=== PATIENT | female | born 1950 | race Caucasian/White ===

== ENCOUNTER 2017-09-28 14:50 | Outpatient (CLI) | payer MEDICARE | END 2017-09-28 14:51 | disposition home or self-care (01) | LOC: BICMAMMO 14:50 | PROVIDERS: ATTEND Internal Medicine | DX: Z12.31 Encounter for screening mammogram for malignant neoplasm of breast (principal); Z13.820 Encounter for screening for osteoporosis; Z78.0 Asymptomatic menopausal state | CPT/HCPCS: 77063; 77067; 77080 ==

== ENCOUNTER 2019-07-24 09:31 | Outpatient (CLI) | payer MEDICARE ==
--- NOTE | 2019-07-24 10:30 | CT ---
LOW DOSE CT SCAN OF CHEST WITHOUT IV CONTRAST FOR LUNG CANCER SCREENING: Date: 07/24/19 HISTORY: Nicotine dependence. 46 year less than 1 pack/day smoking history. Patient quit smoking 06/19/19. COMPARISON: 06/20/18. FINDINGS: No pulmonary nodules are seen. No pneumothoraces or focal areas of consolidation are identified. No p leural or pericardial effusions are noted. There is no evidence of aneurysmal dilatation of the thora cic aorta. Degenerative changes are present in the spine. IMPRESSION: Lung-RADS Category 1 - Negative. RECOMMENDATION: Continue routine annual LDCT lung screening in 12 months. POS: TANK
== END 2019-07-24 09:32 | disposition home or self-care (01) ==
LOC: CT 09:31
PROVIDERS: ATTEND Internal Medicine
DX: F17.210 Nicotine dependence, cigarettes, uncomplicated (principal)
CPT/HCPCS: G0297

== ENCOUNTER 2020-03-05 10:07 | Observation (INO) | payer MEDICARE, OTHER ==
[2020-03-05 11:15] LABS: #Eosinphils 0.1 thou/uL (0.0-0.7); #Lymphocytes 1.7 thou/uL (1.20-3.40); #Monocytes 0.5 thou/uL (0.11-0.59); #Neutrophils 3.7 thou/uL (1.40-6.50); %Basophils 0.5 % (0.0-1.0); %Eosinophils 0.9 % (0.0-10.0); %Lymphocytes 28.3 % (21.0-51.0); %Monocytes 7.5 % (0.0-10.0); %Neutrophils 62.8 % (42.0-75.0); Hemoglobin 14.1 g/dL (12.0-16.0); Mean Corpuscular HGB CONC 32.9 g/dL (32.0-36.0); Mean Corpuscular Hemoglobin 30.5 pg (27.0-31.0); Mean Corpuscular Volume 92.6 fL (78.0-98.0); Mean Platelet Volume 9.7 fL (7.4-10.4); Platelet Count 195 thou/uL (130-400); Red Blood Cell (RBC) Count 4.64 mill/uL (4.20-5.40); White Blood Cell (WBC) Count 5.9 thou/uL (4.8-10.8)
--- NOTE | 2020-03-05 11:19 | RAD ---
EXAM: Single view of the chest HISTORY: Altered mental status COMPARISON: None FINDINGS: Single view of the chest shows a normal sized cardiomediastinal silhouette. There is no meghan dence of consolidation, mass, or pleural effusion. The bones are unremarkable IMPRESSION: No evidence of acute cardiopulmonary disease
[2020-03-05 11:26] LABS: Bilirubin Negative (Negative); Blood, Urine Negative (Negative); Glucose, Urine (Dipstick) Negative (Negative); Ketone, Urine Negative (Negative); Leukocyte Negative (Negative); Nitrite Negative (Negative); Protein, Urine (Dipstick) Negative (Neg-Trace); Urobilinogen 0.2 mg/dL (Less than 2)
[2020-03-05 11:27] LABS: Clarity Clear (Clear); Specific Gravity, Urine 1.004 (1.002-1.036)
--- NOTE | 2020-03-05 11:51 | CT ---
EXAM: CT brain without contrast HISTORY: Dizziness and altered mental status COMPARISON: None TECHNIQUE: Multiple contiguous axial images were obtained and a CT of the brain without contrast. FINDINGS: The brain is normal in morphology and attenuation without focal lesions or confluent areas of infarction. There is no evidence of hydrocephalus, intracranial hemorrhage, or extra-axial fluid collection. The calvarium and overlying soft tissues are unremarkable. The visualized paranasal sinuses and masto id air cells are well aerated. IMPRESSION: No evidence of acute intracranial abnormality
[2020-03-05 11:52] LABS: ALT (SGPT) 17 U/L (8-55); AST (SGOT) 15 U/L (5-34); Albumin 4.2 g/dL (3.4-4.8); Alkaline Phosphatase 87 U/L (40-110); Anion Gap 14 mmol/L (10-20); BUN (Urea Nitrogen) 18 mg/dL (9.8-20.1); Bilirubin, Total 0.6 mg/dL (0.2-1.2); CK (CPK) 61 U/L (29-168); Calc. Creatinine Clearance 0 mL/min (70-130); Calcium 9.1 mg/dL (7.8-10.44); Carbon Dioxide 24 mmol/L (23-31); Chloride 106 mmol/L (98-107); Estimated GFR-MDRD 69; Globulin 2.9 g/dL (2.4-3.5); Glucose 89 mg/dL (80-115); Lipase 20 U/L (8-78); Potassium 3.8 mmol/L (3.5-5.1); Protein, Total 7.1 g/dL (6.0-8.3); Sodium 140 mmol/L (136-145)
[2020-03-05] MEDS ORDERED: Iopamidol-370 76% 500 ML 1 ML ONE (12:30)
[2020-03-05] MEDS ORDERED: Meclizine HCl 25 MG TAB ONE (12:53)
[2020-03-05] MEDS ORDERED: Aspirin Chewable 81 MG TAB ONE (12:53)
--- NOTE | 2020-03-05 13:41 | PDOC.FPRHP ---
- History of Present Illness Chief Complaint: dizziness, numbness in hands and feet History of Present Illness: Ms. Mehta is a 70 yo F with a history of HLD, HTN, asthma and anxiety who presents to the ED complaining of dizziness and bilateral numbness in her hands and feet that began while she was sitting at her desk this afternoon. Patient explains she had a sudden sensation of fogginess, lightheadedness, generalized weakness and tingling throughout her arms and legs. She also experienced a sudden loss of taste. These sensations stayed constant until she received meclazine in the ED. Patient experienced similar, though not as severe symptoms , last week at home. At that time she rested and the symptoms subsided. Patient complains of rhinorrhea for the past week, a loss of taste that began today and a slight cough. She explains she stopped smoking in May and has a lingering cough. Of note, 3 of the patient's coworkers are COVID positive. Patient also reports that she has been hitting her right arm on door frames and tables as she walks by them. 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 ED Course: Patient received aspirin, meclizine, and 500mL of NS. Patient's D-dimer was elevated at 2.26, urine was negative, and all other labs were within normal limits. EKG showed sinus jonathon, sinus arrythmia with a pulse of 57, no STEMI and her trop was <0.01. Patient's CXR was normal, CT was negative, CTA was negative. - Allergies/Adverse Reactions Allergies Allergy/AdvReac Type Severity Reaction Status Date / Time No Known Allergies Allergy Unverified 03/05/20 17:07 - Home Medications Medication Instructions Recorded Confirmed Type Atorvastatin Calcium 20 mg PO DAILY 03/05/20 03/05/20 History Lisinopril/Hydrochlorothiazide 1 tablet PO DAILY 03/05/20 03/05/20 History [Lisinopril-Hctz 20-12.5 mg Tab] - History PMHx: HLD, HTN, asthma, anxiety PSHx: nephrolithotomy 1995, parathyroid tumor removal 2001, hysterectomy FHx: Social: drinks socially and rarely, previous tobacco abuser: quite May 2019, denies drug use - Review of Systems General: denies: fever/chills, fatigue Eyes: denies: vision changes ENT: reports: rhinorrhea. denies: nasal congestion Respiratory: reports: cough. denies: congestion, shortness of breath Cardiovascular: denies: chest pain, palpitation, edema Gastrointestinal: denies: nausea, vomiting, diarrhea, constipation, abdominal pain Genitourinary: denies: dysuria Musculoskeletal: denies: pain, tenderness, swelling Neurological: reports: numbness. denies: weakness - Vital signs BP: 126/68 HR: 65 RR: 12 T:97.5 Pox: 99% on RA Wt: 97.5 - Physical Exam Constitutional: NAD, awake, alert and oriented, well developed HEENT: normocephalic and atraumatic, PERRLA, EOMI, no scleral icterus, grossly normal hearing Neck: FROM Heart: RRR, normal S1/S2, no murmurs/rubs/gallops, pulses present, no edema Lungs: CTAB, no respiratory distress, good air movement, no rales/rhonchi, no wheezing, no retractions Abdomen: soft, non-tender, bowel sounds present Musculoskeletal: normal structure, normal tone, ROM grossly normal Neurological: no focal deficit, normal sensation Psychiatric: normal mood and affect, good judgment and insight, intact recent and remote memory FMR H&P: Results - Labs Result Diagrams: 03/05/20 10:58 03/05/20 10:58 Lab results: WBC 5.9 thou/uL (4.8-10.8) 03/05/20 10:58 Hgb 14.1 g/dL (12.0-16.0) 03/05/20 10:58 Hct 42.9 % (36.0-47.0) 03/05/20 10:58 MCV 92.6 fL (78.0-98.0) 03/05/20 10:58 Plt Count 195 thou/uL (130-400) 03/05/20 10:58 Neutrophils % 62.8 % (42.0-75.0) 03/05/20 10:58 Sodium 140 mmol/L (136-145) 03/05/20 10:58 Potassium 3.8 mmol/L (3.5-5.1) 03/05/20 10:58 Chloride 106 mmol/L (98-107) 03/05/20 10:58 Carbon Dioxide 24 mmol/L (23-31) 03/05/20 10:58 BUN 18 mg/dL (9.8-20.1) 03/05/20 10:58 Creatinine 0.82 mg/dL (0.6-1.1) 03/05/20 10:58 Glucose 89 mg/dL (80-115) 03/05/20 10:58 Calcium 9.1 mg/dL (7.8-10.44) 03/05/20 10:58 Total Bilirubin 0.6 mg/dL (0.2-1.2) 03/05/20 10:58 AST 15 U/L (5-34) 03/05/20 10:58 ALT 17 U/L (8-55) 03/05/20 10:58 Alkaline Phosphatase 87 U/L (40-110) 03/05/20 10:58 Creatine Kinase 61 U/L (29-168) 03/05/20 10:58 B-Natriuretic Peptide 41.0 pg/mL (0-100) 03/05/20 10:58 Serum Total Protein 7.1 g/dL (6.0-8.3) 03/05/20 10:58 Albumin 4.2 g/dL (3.4-4.8) 03/05/20 10:58 Lipase 20 U/L (8-78) 03/05/20 10:58 Urine Ketones Negative mg/dL (Negative) 03/05/20 10:30 Urine Blood Negative (Negative) 03/05/20 10:30 Urine Nitrite Negative (Negative) 03/05/20 10:30 Ur Leukocyte Esterase Negative (Negative) 03/05/20 10:30 Laboratory Tests 03/05/20 03/05/20 11:57 13:45 D-Dimer 2.26 H SARS-CoV-2 Rap RNA(RT-PCR) Not Detected - EKG Interpretation EKG: sinus bradycardia, sinus arrhythmia P 57, no STEMI - Radiology Interpretation CT scan - head Status: report reviewed by me (negative) Chest x-ray Status: report reviewed by me (normal) Other Status: report reviewed by me (CTA: negative) FMR H&P: A/P - Plan 70 yo F with a history of HLD, HTN, asthma, and anxiety complaining of dizziness , numbness of arms and legs since this morning. CVA vs. vertigo vs. vestibular neuritis -Received aspirin, meclizine, LR 500mL NS in ED -CT head negative -lipids,A1C, TSH pending -MRI in AM -US dopplers pending -hold lisinopril/HCTZ -aspirin and atorvastatin -EKG: sinus bradycardia -trop <0.01 COVID rule out -History of runny nose/1wk, loss of taste, cough, and positive exposures. -Negative rapid swab -CTA negative -CXR normal HTN -hold home meds -PRNs for BP in systolic>200 or diastolic>110 HLD -lipids pending -atorvastatin Diet: HH IVF: none PPx: SCDs Code: FULL PCP: [facility] Dispo: will admit to tele; expected length of stay <48 hrs. FMR H&P: Upper Level - Plan Date/Time: 03/05/20 1341 I, Solis Galvez DO, have evaluated this patient and agree with findings/plan as outlined by international freight forwarder resident. Pertinent changes/additions are listed here. 70 yo F w pmhx sig for htn/hld presents with acute onset vertigo since 0800 today, resolving in the ED with meclizine and 1L fluid bolus. She has no symptoms during my examination. She reports for the last 4-5 days she has had rhinorrhea, but denies any changes in vision, syncope, weakness, or sensory disturbance. She reports this has happened in the past just for a few minutes but she was concerned this time when it did not resolved. In the ED her CT scan was neg for acute abnormalities, EKG sig for sinus jonathon. PE exam was wnl, strength 5/5, CN II-XII intact, sensation normal. heart RRR, lungs CTAB. labs were wnl as well. Will admit to stroke obs for TIA work up: risk stratification , MRI, and permissive htn. Consider vestibular neuritis as a potential cause, if MRI wnl in AM consider po steroids if symptoms persist. please see international freight forwarder note for mgmt of chronic problems. ELOS<48hrs. Addendum - Attending - Attending Attestation Date/Time: 03/05/20 1820 I personally evaluated the patient and discussed the management with Dr. Galvez/ Carlos. I agree with the History, Examination, Assessment and Plan documented above with any addition or exceptions noted below. See my event note for details.
--- NOTE | 2020-03-05 14:15 | CT ---
CT ANGIOGRAM CHEST WITH 3D RENDERING: Date: 03/05/2020 HISTORY: Elevated D-Dimer. Dizziness. Presyncope. FINDINGS: No convincing CT evidence for acute pulmonary embolism. There is adequate opacification on the pulmon brent arteries. Small hiatal hernia. Very small punctate calcific focus along the wall of the gallbladd er, possibly a small calcified polyp or a very tiny gallstone without evidence for acute cholecystiti s. Fullness of the right adrenal gland and nodularity of the left adrenal gland with attenuation coef ficient evidence for adrenal adenomas. No mediastinal mass or adenopathy. No pleural or pericardial e ffusion. No significant acute pulmonary parenchymal disease or pneumonia. Some very subtle chronic ch janice involving the lingula. IMPRESSION: 1. No convincing CT evidence for acute pulmonary embolism. 2. Small hiatal hernia. 3. Tiny calcific focus along the wall of the gallbladder, possibly a calcified polyp versus a very s mall gallstone. POS: RRE
[2020-03-05] MEDS ORDERED: Acetaminophen 325 MG TAB PO PRN (16:10)
[2020-03-05] MEDS ORDERED: Labetalol HCl 100 MG/20 ML VIAL SLOW IVP PRN (16:10)
[2020-03-05] MEDS ORDERED: hydrALAZINE 20 MG/ML VIAL SLOW IVP PRN (16:10)
[2020-03-05] MEDS ORDERED: Enalaprilat Dihydrate 1.25 MG/ML VIAL SLOW IVP PRN (16:10)
[2020-03-05 17:19] LABS: Hemoglobin A1c 5.6 % (4.0-6.0)
--- NOTE | 2020-03-05 17:36 | PDOC.EVN ---
Event Note - Event Note Event Note: Seen and evaluated. Reviewed with Dr. Gonzalez/Lenny. Dizziness that had resolved upon my exam. Negative jil halpike and HINTS. Labs unremarkable. Imaging negative. Obs for TIA eval. Risk stratify. MRI. meclazine PRN for repeat sx. Possible due to vestibular neuritis. COVID negative.
[2020-03-05] MEDS ORDERED: Atorvastatin Calcium 40 MG TAB PO SCH (21:00)
[2020-03-05 22:36] VITALS: BMI 41.3
--- NOTE | 2020-03-06 00:03 | ULT ---
Carotid duplex sonogram HISTORY: CVA. FINDINGS: Right: Scattered areas of plaque. Color and spectral Doppler evaluation, peak systolic velocity of 67 cm/s, and IC to CC ratio of 0.9 suggest no hemodynamically significant stenosis within the extracranial right ICA. Antegrade flow within the vertebral artery. Left: Scattered plaque. Color and spectral Doppler evaluation, peak systolic velocity of 61 cm/s, and IC to CC ratio 0.8 suggest no likely significance left ICA. Antegrade flow within the vertebral artery. IMPRESSION : Atherosclerosis. No sonographic evidence of significant extracranial ICA stenosis.
[2020-03-06 05:28] LABS: Cardiac Risk 2.9 (Less than 4.5)
--- NOTE | 2020-03-06 05:28 | PDOC.FM ---
- Subjective Subjective: Ms. Mehta has no complaints today. She denies any headache, numbness, nausea or vomiting. - Objective Vital Signs & Weight: Vital Signs (12 hours) Temp Pulse Resp BP BP Pulse Ox 03/06/20 03:29 97.2 F L 58 L 20 128/84 97 03/05/20 23:56 97.4 F L 54 L 20 125/67 94 L 03/05/20 21:46 98.5 F 58 L 18 134/66 95 Weight Weight 99.246 kg Result Diagrams: 03/05/20 10:58 03/05/20 10:58 Additional Labs: Laboratory Tests 03/05/20 03/05/20 03/06/20 16:55 16:55 04:55 Hemoglobin A1c 5.6 Triglycerides 78 Cholesterol 167 LDL Cholesterol, Calc 94 HDL Cholesterol 57 Heart Disease Risk Ratio 2.9 TSH 3rd Generation 1.8986 EKG Reviewed by me: Yes (tele: sinus bradycardia, 50s) Phys Exam - Physical Examination Constitutional: NAD HEENT: PERRLA, moist MMs, sclera anicteric Neck: full ROM Respiratory: no wheezing, no rales, no rhonchi, clear to auscultation bilateral Cardiovascular: RRR, no significant murmur, no rub Gastrointestinal: soft, non-tender, no distention, positive bowel sounds Musculoskeletal: no edema, pulses present Neurological: non-focal, moves all 4 limbs Psychiatric: normal affect, A&O x 3 Dx/Plan - Plan Plan: 70 yo F with a history of HLD, HTN, asthma, and anxiety complaining of dizziness , numbness of arms and legs since this morning. CVA vs. vertigo vs. vestibular neuritis -Received aspirin, meclizine, LR 500mL NS in ED -CT head negative -lipids,A1C, TSH within normal limits. Heart disease ratio: below average risk -MRI this morning -US dopplers pending -hold lisinopril/HCTZ, permissive hypertension -aspirin and atorvastatin -EKG: sinus bradycardia -trop <0.01 COVID rule out -History of runny nose/1wk, loss of taste, cough, and positive exposures. -Negative rapid swab -CTA negative -CXR normal HTN -hold home meds -PRNs for BP in systolic>200 or diastolic>110 HLD -lipids pending -atorvastatin Diet: HH IVF: none PPx: SCDs Code: FULL PCP: [facility] Dispo: will admit to tele; expected length of stay <48 hrs.
[2020-03-06] MEDS ORDERED: Aspirin 81 mg Enteric Coated Tablet PO SCH (09:00)
[2020-03-06] MEDS ORDERED: Lorazepam 0.5 MG TAB PO PRN ×2 (09:07)
[2020-03-06 11:40] VITALS: BP 122/71; TEMP 97.1
--- NOTE | 2020-03-06 12:40 | MRI ---
EXAM: MRI of the brain without and with contrast HISTORY: Numbness and tingling over her entire body yesterday for a few hours COMPARISON: None TECHNIQUE: Multiplanar multisequence MR images were obtained of the brain without and with IV contras t. FINDINGS: There are a few scattered subtle foci of high T2/FLAIR signal in the subcortical and periventricular white matter, likely secondary to small vessel ischemic disease. No restricted diffusion. No abnormal enhancement. No hydronephrosis. No extra-axial fluid collection or intracranial hemorrhage. The expected flow voids are present. Corpus callosum, pituitary, and craniocervical junction are within normal limits. The calvarium and overlying soft tissues are unremarkable. The paranasal sinuses and mastoid air cells are well aerated. IMPRESSION: No evidence of acute intracranial abnormality.
--- NOTE | 2020-03-06 17:58 | PRG ---
DATE OF SERVICE: 03/06/2020 Please see the note done by Dr. Steven Gonzalez for which I agree. The patient was seen, evaluated, and discussed with the residents and examined by bedside. Basically, just a little numbness and dizziness and almost more of a near syncopal type spells, reason why she was here, that is resolved. We have an MRI pending. As long as it looks normal, I think we can send her out, assuming this is transient vertigo. One thing that has been pretty consistent is pulse rate 60 or below. It sounds like she runs in the low side, although she has been this low before. May have to consider an outpatient Holter monitor if this continues to her having any symptoms like this. We will see what the MRI shows, and as long as this is normal, she would be able to go home. Job ID: [id number]
--- NOTE | 2020-03-07 09:14 | DIS ---
DATE OF ADMISSION: 03/05/2020 DATE OF DISCHARGE: 03/06/2020 RESIDENT: Steven Gonzalez MD ADMITTING ATTENDING: Sabas Claudio MD DISCHARGE ATTENDING: Ken Pierson MD CONSULTS: None. PROCEDURES: None. PRIMARY DIAGNOSIS: Cerebrovascular accident rule out. SECONDARY DIAGNOSES: Hypertension, hyperlipidemia, and COVID rule out. DISCHARGE MEDICATIONS: 1. Lisinopril. 2. Hydrochlorothiazide 20 mg/12.5 mg 1 tablet p.o. daily. 3. Atorvastatin 40 mg p.o. at bedtime. DISCONTINUED MEDICATION: Atorvastatin 20 mg p.o. daily. HPI/BRIEF HOSPITAL COURSE: Ms. Mehta is a 70-year-old female with a history of hyperlipidemia, hypertension, asthma, and anxiety, who presented to the ED complaining of dizziness and bilateral numbness in her hands and feet that began while she was sitting in her desk and lasted for 4 to 5 hours until she arrived in the ED and received meclizine. She explained she had a sensation of fogginess, lightheadedness, generalized weakness, and tingling to her arms and legs as well as sudden loss of taste. She experienced similar symptoms last week at home. At that time, she rested and the symptoms subsided. She also complained of rhinorrhea for the past week and a slight cough. She was tested negative for COVID. While in the emergency room, the patient received aspirin, meclizine, and 500 mL of normal saline. She had elevated D-dimer. Her urine was negative and all of her other labs were within normal limits. EKG showed sinus bradycardia and sinus arrhythmia with the pulse of 57, but no STEMI, and troponin was negative. Normal chest x-ray, negative CT, and negative CTA. The patient was admitted for CVA rule out. Her lipids, A1c, and TSH were within normal limits. Brain MRI showed no evidence of acute intracranial abnormality. The patient was discharged home with an increased dose of atorvastatin. While in the hospital, she was consistently bradycardic in the 50s. She was encouraged if her symptoms persist to follow up with her primary care physician about her bradycardia and getting a Holter monitor. DISPOSITION: Stable. DISCHARGE INSTRUCTIONS: 1. Location: To home. 2. Diet: Heart healthy. 3. Activity: As tolerated. 4. Followup: As needed. Job ID: [id number] [facility]
== END 2020-03-06 14:50 | disposition home or self-care (01) ==
LOC: ERS 10:07 → 2SE 13:30
PROVIDERS: ADMIT Family Medicine; ATTEND Family Medicine
DX: R42 Dizziness and giddiness (principal); R20.0 Anesthesia of skin; E78.5 Hyperlipidemia, unspecified; I10 Essential (primary) hypertension; J45.909 Unspecified asthma, uncomplicated; F41.9 Anxiety disorder, unspecified; K44.9 Diaphragmatic hernia without obstruction or gangrene; R79.1 Abnormal coagulation profile; I70.90 Unspecified atherosclerosis; R43.9 Unspecified disturbances of smell and taste; R05 Cough; Z20.828 Contact with and (suspected) exposure to other viral communicable diseases; Z87.891 Personal history of nicotine dependence; Z79.899 Other long term (current) drug therapy
CPT/HCPCS: 70450; 70553; 71045; 71275; 80061; 81003; 82550; 83036; 83690; 83880; 84484; 85379; 93005; 93880; 96360; 99285; G0378 ×3; U0002; 36415; 80053; 84443; 85025; Q9967

== ENCOUNTER 2020-08-04 08:09 | Outpatient (CLI) | payer MEDICARE ==
--- NOTE | 2020-08-04 08:57 | BD ---
EXAM: DEXA bone density examination HISTORY: 70-year-old postmenopausal female for screening COMPARISON: None FINDINGS: L1--bone mineral density 0.876 g/sq cm; T score -1.0 L2--bone mineral density 0.839 g/sq cm; T score -1.7 L3--bone mineral density 0.805 g/sq cm; T score -2.5 L4--bone mineral density 0.891 g/sq cm; T score -1.5 Total L1-L4--bone mineral density 0.855 g/sq cm; T score -1.7 Left femoral neck--bone mineral density0.703; T score -1.3 Total proximal left femur--bone mineral density 1.038; T score 0.8 IMPRESSION: Osteopenia. This patient has a 10 year WHO fracture risk of a major osteoporotic fracture of 8.2% and of a hip fracture of 0.8%.
--- NOTE | 2020-08-04 08:59 | MMO ---
Bilateral MAMMO Bilat Screen [facility]. CLINICAL HISTORY: Patient is 70 years old and is seen for screening. The patient has the following family history of breast cancer: maternal grandmother and paternal grandmother. The patient has no personal history of cancer. VIEWS: The views performed were: bilateral craniocaudal with tomosynthesis and bilateral mediolateral oblique with tomosynthesis. FILMS COMPARED: The present examination has been compared to prior imaging studies performed at [facility] on 09/28/2017 and 12/26/2018. This study has been interpreted with the assistance of computer-aided detection. MAMMOGRAM FINDINGS: There are scattered fibroglandular densities. There are no suspicious masses, suspicious calcifications, or new areas of architectural distortion. IMPRESSION: THERE IS NO MAMMOGRAPHIC EVIDENCE OF MALIGNANCY. A ROUTINE FOLLOW-UP MAMMOGRAM IN 1 YEAR IS RECOMMENDED. THE RESULTS OF THIS EXAM WERE SENT TO THE PATIENT. ACR BI-RADS Category 1 - Negative MAMMOGRAPHY NOTE: 1. A negative mammogram report should not delay a biopsy if a dominant of clinically suspicious mass is present. 2. Approximately 10% to 15% of breast cancers are not detected by mammography. 3. Adenosis and dense breasts may obscure an underlying neoplasm. Reported by: YOUSIF GORDILLO MD Electonically Signed: [id number]
== END 2020-08-04 08:10 | disposition home or self-care (01) ==
LOC: BICMAMMO 08:09
PROVIDERS: ATTEND Internal Medicine
DX: Z12.31 Encounter for screening mammogram for malignant neoplasm of breast (principal); Z13.820 Encounter for screening for osteoporosis; Z78.0 Asymptomatic menopausal state; Z80.3 Family history of malignant neoplasm of breast; M85.89 Other specified disorders of bone density and structure, multiple sites
CPT/HCPCS: 77063; 77067; 77080

== ENCOUNTER 2022-11-29 10:05 | Outpatient (CLI) | payer MEDICARE | END 2022-11-29 10:06 | disposition home or self-care (01) | LOC: BICMAMMO 10:05 | PROVIDERS: ATTEND Internal Medicine | DX: Z12.31 Encounter for screening mammogram for malignant neoplasm of breast (principal); Z78.0 Asymptomatic menopausal state; M85.89 Other specified disorders of bone density and structure, multiple sites | CPT/HCPCS: 77063; 77067; 77080 ==

== ENCOUNTER 2025-03-27 07:35 | Outpatient (CLI) | payer MEDICARE | END 2025-03-27 07:36 | disposition home or self-care (01) | LOC: BICMAMMO 07:35 | PROVIDERS: ATTEND Internal Medicine | DX: Z12.31 Encounter for screening mammogram for malignant neoplasm of breast (principal); Z78.0 Asymptomatic menopausal state; M85.89 Other specified disorders of bone density and structure, multiple sites; Z80.3 Family history of malignant neoplasm of breast; Z91.89 Other specified personal risk factors, not elsewhere classified | CPT/HCPCS: 77063; 77067; 77080 ==

== ENCOUNTER 2025-03-27 08:41 | Outpatient (CLI) | payer MEDICARE | END 2025-03-27 08:42 | disposition home or self-care (01) | LOC: BICCT 08:41 | PROVIDERS: ATTEND Internal Medicine | DX: Z12.2 Encounter for screening for malignant neoplasm of respiratory organs (principal); F17.210 Nicotine dependence, cigarettes, uncomplicated | CPT/HCPCS: 71271 ==